=== PATIENT | female | born 1980 | race Caucasian/White ===

== ENCOUNTER → 2017-08-13 | Outpatient (CLI) | payer OTHER, MEDICARE, MEDICAID ==
[~2017-08-13] MED LIST: ACETAMINOPHEN325 M1 PO; ADVAIR HFA 1112 UNIT INH; ALLERGY10 MG PO; ANUSOL-HC25 MG RECTAL; APAP500 PO; AUGMENTIN 875-1 EACH PO; AZTREONAM1 GM IV; BACTRIM DS TAB1 EACH PO; BENTYL10 MG PO; BONIVA150 MG PO; BUTALB-ACETAMI1 EACH PO; CARDIZEM CD 18180 M3 PO; CARDIZEM CD240 MG PO; CATHFLO ACT2 MG/VIA1 IV; CHOLESTYRAMINE P4 GM PO; CIPRO500 MG PO; COMBIVENT INH; COMBIVENT RESPIM4 GM INH; D-20002000 UNIT PO; DILTIAZEM 24HR240 M1 PO; DILTIAZEM 24HR240 MG PO; DIPHENHIST50 MG PO; DUONEB 2.5-0.5 M3 ML INH; FIORICET 50-321 EACH PO; FISH OIL + D31 EACH; FISH OIL 1,001000 M2 PO; FLAGYL500 MG PO; FOSAMAX 35 MG35 MG PO; FOSAMAX 70 MG T70 M1 PO; FOSAMAX 70 MG T70 MG PO; IBUPROFEN 200200 M1 PO; IBUPROFEN 600600 M1 PO; INVANZ 1GM/NS 101 GM IV; INVANZ IV; IRON325 PO; KEPPRA 500 MG500 M1 PO; KEPPRA750 MG PO; MAXIPIME 1 GM/D51 G1 IVPB; MEROPENEM 1 GM V1 GM IVPB; MULTIVITAMINS PO; NORCO 5-325 TA1 EACH PO; PERCOCET 5-3251 EACH PO; PROTONIX40 M2 PO; SINGULAIR 10 MG10 M1 PO; SYNTHROID50 MCG PO; TAMSULOSIN HCL0.4 MG PO; URSODIOL300 MG PO; VANCO1GM IV; VANCOMYCIN HCL 11 G2 IV; VANCOMYCIN100 MG/ML PO; VENTOLIN17 GM INH; XANAX 0.5 MG0.5 MG PO; ZOFRAN 4 MG ORAL4 MG PO; ZOFRAN ODT4 MG PO; ZOFRAN4 MG PO
== END ==
LOC: M.WC 02:10
DX: L89.892 Pressure ulcer of other site, stage 2 (principal); L89.320 Pressure ulcer of left buttock, unstageable; I10 Essential (primary) hypertension; Q05.7 Lumbar spina bifida without hydrocephalus; G40.301 Generalized idiopathic epilepsy and epileptic syndromes, not intractable, with status epilepticus; J45.909 Unspecified asthma, uncomplicated; F41.1 Generalized anxiety disorder; F32.9 Major depressive disorder, single episode, unspecified; Z90.710 Acquired absence of both cervix and uterus

== ENCOUNTER → 2017-09-13 | Outpatient (CLI) | payer OTHER, MEDICARE, MEDICAID | LOC: M.WC 11:00 | DX: L89.152 Pressure ulcer of sacral region, stage 2 (principal); L89.893 Pressure ulcer of other site, stage 3; F41.1 Generalized anxiety disorder; G40.301 Generalized idiopathic epilepsy and epileptic syndromes, not intractable, with status epilepticus; Q05.7 Lumbar spina bifida without hydrocephalus; J45.909 Unspecified asthma, uncomplicated; F32.9 Major depressive disorder, single episode, unspecified; I10 Essential (primary) hypertension ==

== ENCOUNTER → 2017-09-20 | Outpatient (CLI) | payer OTHER, MEDICARE, MEDICAID | LOC: M.WC 02:42 | DX: L89.152 Pressure ulcer of sacral region, stage 2 (principal); L89.320 Pressure ulcer of left buttock, unstageable; I10 Essential (primary) hypertension; L03.116 Cellulitis of left lower limb; Q05.9 Spina bifida, unspecified; F41.1 Generalized anxiety disorder; F32.9 Major depressive disorder, single episode, unspecified; J45.909 Unspecified asthma, uncomplicated; Z90.710 Acquired absence of both cervix and uterus ==

== ENCOUNTER → 2017-09-27 | Outpatient (CLI) | payer OTHER, MEDICARE, MEDICAID | LOC: M.WC 02:33 | DX: L89.893 Pressure ulcer of other site, stage 3 (principal); L89.223 Pressure ulcer of left hip, stage 3; Q05.9 Spina bifida, unspecified; I10 Essential (primary) hypertension; L03.116 Cellulitis of left lower limb; G40.301 Generalized idiopathic epilepsy and epileptic syndromes, not intractable, with status epilepticus; J45.909 Unspecified asthma, uncomplicated; F32.9 Major depressive disorder, single episode, unspecified; F41.1 Generalized anxiety disorder; Z90.710 Acquired absence of both cervix and uterus; Z89.422 Acquired absence of other left toe(s) ==

== ENCOUNTER → 2017-10-04 | Outpatient (CLI) | payer OTHER, MEDICARE, MEDICAID | LOC: M.WC 02:27 | DX: L89.893 Pressure ulcer of other site, stage 3 (principal); I10 Essential (primary) hypertension; Q05.7 Lumbar spina bifida without hydrocephalus; G40.301 Generalized idiopathic epilepsy and epileptic syndromes, not intractable, with status epilepticus; J45.909 Unspecified asthma, uncomplicated; F32.9 Major depressive disorder, single episode, unspecified; F41.1 Generalized anxiety disorder; Z90.710 Acquired absence of both cervix and uterus ==

== ENCOUNTER → 2017-10-18 | Outpatient (CLI) | payer OTHER, MEDICARE, MEDICAID | LOC: M.WC 03:48 | DX: L89.893 Pressure ulcer of other site, stage 3 (principal); I10 Essential (primary) hypertension; Q05.7 Lumbar spina bifida without hydrocephalus; J45.909 Unspecified asthma, uncomplicated; F32.9 Major depressive disorder, single episode, unspecified; F41.1 Generalized anxiety disorder; Z90.710 Acquired absence of both cervix and uterus; Z89.422 Acquired absence of other left toe(s) ==

== ENCOUNTER → 2017-11-01 | Outpatient (CLI) | payer OTHER, MEDICARE, MEDICAID | LOC: M.WC 04:38 | DX: L89.893 Pressure ulcer of other site, stage 3 (principal); Q05.7 Lumbar spina bifida without hydrocephalus; G40.301 Generalized idiopathic epilepsy and epileptic syndromes, not intractable, with status epilepticus; F41.1 Generalized anxiety disorder; J45.909 Unspecified asthma, uncomplicated; F32.9 Major depressive disorder, single episode, unspecified; I10 Essential (primary) hypertension; Z90.710 Acquired absence of both cervix and uterus ==

== ENCOUNTER → 2017-11-15 | Outpatient (CLI) | payer OTHER, MEDICARE, MEDICAID | LOC: M.WC 01:52 | DX: L89.893 Pressure ulcer of other site, stage 3 (principal); L97.121 Non-pressure chronic ulcer of left thigh limited to breakdown of skin; I10 Essential (primary) hypertension; G40.909 Epilepsy, unspecified, not intractable, without status epilepticus; Q05.9 Spina bifida, unspecified; J45.909 Unspecified asthma, uncomplicated; F41.9 Anxiety disorder, unspecified; F32.9 Major depressive disorder, single episode, unspecified; Z90.710 Acquired absence of both cervix and uterus; Z89.422 Acquired absence of other left toe(s) ==

== ENCOUNTER → 2017-12-20 | Outpatient (CLI) | payer OTHER, MEDICARE, MEDICAID ==
--- NOTE | 2017-12-20 14:47 | NUR ---
ARRIVED PER WHEELCHAIR. STAYED IN [facility]. PORT A CATH ACCCESSED WITH EASE. GOOD BRISK BLOOD RETURN NOTED AND FLUSHED WITH EASE. LINE FLUSHED AND DEACCESSED. TOLERATED WELL. DENIES NEEDS AT DISCHARGE.
== END ==
LOC: M.INFUS 02:28
DX: Z45.2 Encounter for adjustment and management of vascular access device (principal)

== ENCOUNTER → 2018-01-17 | Outpatient (CLI) | payer OTHER, MEDICARE, MEDICAID ==
--- NOTE | 2018-01-17 11:18 | NUR ---
ARRIVED PER WHEELCHAIR. STAYED IN WHEELCHAIR. GRANDMA WITH PT. EMELA CREAM UNDER TEGADERM TO LEFT CHEST OVER PORT REMOVED. PORT ACCESSED PER PROTOCOL. GOOD BRISKB LOOD RETURN NOTED AND FLUSHED WITH EASE. PORT FLUSHED AND THEN DEACCESSED. DENEIS QUESTIONS OR NEEDS AT DISCHARGE.
== END ==
LOC: M.INFUS 08:52
DX: Z45.2 Encounter for adjustment and management of vascular access device (principal); M46.28 Osteomyelitis of vertebra, sacral and sacrococcygeal region

== ENCOUNTER → 2018-02-06 | Outpatient (CLI) | payer OTHER, MEDICARE, MEDICAID ==
[2018-02-06 15:04] LABS: ABSOLUTE EOSINOPHILS 0.1 thou/uL (0.0-0.7); ABSOLUTE LYMPHOCYTES 1.1 thou/uL (0.8-5.3); ABSOLUTE MONOCYTES 0.5 thou/uL (0.0-1.2); ABSOLUTE NEUTROPHILS 5.2 thou/uL (1.6-8.1); BASOPHILS 0.6 %; EOSINOPHILS 1.7 %; HEMATOCRIT 32.2 % (37.0-47.0); HEMOGLOBIN 10.2 gm/dL (12.0-15.0); LYMPHOCYTES 16.2 %; MCH 25.3 pg (26.0-34.0); MCHC 31.7 g/dL (28.0-37.0); MCV 79.9 fL (80.0-100.0); MONOCYTES 7.1 %; MPV 7.8 fl. (7.2-11.1); NUCLEATED RBCS 0 /100WBC; PLATELET COUNT* 373 thou/uL (150-400); POLYS 74.4 %; RBC 4.03 mil/uL (4.20-5.00); RDW-CV 18.7 % (10.5-14.5)
[2018-02-06 16:05] LABS: ESR (SEDRATE) 55 mm/hr (0-20)
== END ==
LOC: M.ULTRA 14:35
PROVIDERS: Nurse Practitioner Family
DX: L02.416 Cutaneous abscess of left lower limb (principal)

== ENCOUNTER → 2018-02-07 | Outpatient (CLI) | payer OTHER, MEDICARE, MEDICAID | LOC: M.WC 09:11 | DX: L89.153 Pressure ulcer of sacral region, stage 3 (principal); L89.223 Pressure ulcer of left hip, stage 3; L89.899 Pressure ulcer of other site, unspecified stage; L02.416 Cutaneous abscess of left lower limb; G40.301 Generalized idiopathic epilepsy and epileptic syndromes, not intractable, with status epilepticus; I10 Essential (primary) hypertension; J45.909 Unspecified asthma, uncomplicated; Q05.7 Lumbar spina bifida without hydrocephalus; F32.9 Major depressive disorder, single episode, unspecified; F41.1 Generalized anxiety disorder; Z93.3 Colostomy status; Z89.422 Acquired absence of other left toe(s); Z90.710 Acquired absence of both cervix and uterus ==

== ENCOUNTER → 2018-02-14 | Outpatient (CLI) | payer OTHER, MEDICARE, MEDICAID ==
--- NOTE | 2018-02-14 12:20 | NUR ---
ARRIVED PER WHEELCAHIR. STAYED IN WHEELCHAIR. EMELA CREAM TO LEFT CHEST PER PT PRIOR TO ARRIVAL. CREAM REMOVED WITH 4X4. PORT ACCESSED PER PROTOCOL. GOOD BRISK BLOOD RETURN NOTED AND FLUSHED WITH EASE. PORT FLUSHED AND DEACCESSED. BANDAID APPLIED TO INSERTION SITE. DENIES NEEDS AT DISCHARGE.
== END ==
LOC: M.WC 05:30
DX: L89.152 Pressure ulcer of sacral region, stage 2 (principal); L02.416 Cutaneous abscess of left lower limb; I10 Essential (primary) hypertension; Q05.7 Lumbar spina bifida without hydrocephalus; G40.301 Generalized idiopathic epilepsy and epileptic syndromes, not intractable, with status epilepticus; J45.909 Unspecified asthma, uncomplicated; F32.9 Major depressive disorder, single episode, unspecified; F41.1 Generalized anxiety disorder

== ENCOUNTER → 2018-02-21 | Outpatient (CLI) | payer OTHER, MEDICARE, MEDICAID | LOC: M.WC 03:49 | DX: L89.153 Pressure ulcer of sacral region, stage 3 (principal); L89.899 Pressure ulcer of other site, unspecified stage; L02.416 Cutaneous abscess of left lower limb; I10 Essential (primary) hypertension; J45.909 Unspecified asthma, uncomplicated; Q05.7 Lumbar spina bifida without hydrocephalus; G40.301 Generalized idiopathic epilepsy and epileptic syndromes, not intractable, with status epilepticus; F32.9 Major depressive disorder, single episode, unspecified; F41.1 Generalized anxiety disorder ==

== ENCOUNTER → 2018-02-28 | Outpatient (CLI) | payer OTHER, MEDICARE, MEDICAID | LOC: M.WC 00:39 | DX: L89.892 Pressure ulcer of other site, stage 2 (principal); L02.416 Cutaneous abscess of left lower limb; G40.301 Generalized idiopathic epilepsy and epileptic syndromes, not intractable, with status epilepticus; I10 Essential (primary) hypertension; J45.909 Unspecified asthma, uncomplicated; Q05.7 Lumbar spina bifida without hydrocephalus; F32.9 Major depressive disorder, single episode, unspecified; F41.1 Generalized anxiety disorder ==

== ENCOUNTER → 2018-03-07 | Outpatient (CLI) | payer OTHER, MEDICARE, MEDICAID | LOC: M.WC 04:50 | DX: L89.892 Pressure ulcer of other site, stage 2 (principal); G40.301 Generalized idiopathic epilepsy and epileptic syndromes, not intractable, with status epilepticus; I10 Essential (primary) hypertension; J45.909 Unspecified asthma, uncomplicated; Q05.7 Lumbar spina bifida without hydrocephalus; F32.9 Major depressive disorder, single episode, unspecified; F41.9 Anxiety disorder, unspecified ==

== ENCOUNTER → 2018-03-21 | Outpatient (CLI) | payer OTHER, MEDICARE, MEDICAID | LOC: M.INFUS 04:32 | DX: Z45.2 Encounter for adjustment and management of vascular access device (principal); M46.28 Osteomyelitis of vertebra, sacral and sacrococcygeal region ==

== ENCOUNTER → 2018-03-21 | Outpatient (CLI) | payer OTHER, MEDICARE, MEDICAID ==
[2018-03-21 10:15] VITALS: BP 106/63
--- NOTE | 2018-03-21 11:00 | NUR ---
PT SICHARGED HOME WITHMOTHER. NO CO OF PAIN OR NAUSEA. PT GIVEN DISCHARGE PORT OF CARE INSTRUCTIONS.
== END ==
LOC: M.WC 04:36
DX: L89.892 Pressure ulcer of other site, stage 2 (principal); L97.122 Non-pressure chronic ulcer of left thigh with fat layer exposed; G82.20 Paraplegia, unspecified; G40.301 Generalized idiopathic epilepsy and epileptic syndromes, not intractable, with status epilepticus; I10 Essential (primary) hypertension; J45.909 Unspecified asthma, uncomplicated; Q05.7 Lumbar spina bifida without hydrocephalus; F41.9 Anxiety disorder, unspecified; F32.9 Major depressive disorder, single episode, unspecified

== ENCOUNTER → 2018-04-04 | Outpatient (CLI) | payer OTHER, MEDICARE, MEDICAID ==
[2018-04-04 11:47] LABS: ABSOLUTE BASOPHILS 0.1 thou/uL (0.0-0.2); ABSOLUTE EOSINOPHILS 0.1 thou/uL (0.0-0.7); ABSOLUTE LYMPHOCYTES 1.1 thou/uL (0.8-5.3); ABSOLUTE MONOCYTES 0.5 thou/uL (0.0-1.2); ABSOLUTE NEUTROPHILS 2.7 thou/uL (1.6-8.1); BASOPHILS 1.5 %; EOSINOPHILS 3.2 %; HEMATOCRIT 30.5 % (37.0-47.0); HEMOGLOBIN 9.6 gm/dL (12.0-15.0); LYMPHOCYTES 24.7 %; MCH 25.2 pg (26.0-34.0); MCHC 31.6 g/dL (28.0-37.0); MONOCYTES 10.4 %; MPV 7.8 fl. (7.2-11.1); NUCLEATED RBCS 0 /100WBC; PLATELET COUNT* 417 thou/uL (150-400); POLYS 60.2 %; RBC 3.81 mil/uL (4.20-5.00); RDW-CV 16.6 % (10.5-14.5); WBC 4.5 thou/uL (4.0-11.0)
[2018-04-04 12:07] LABS: ANION GAP 10 mmol/L (7-16); BUN 10 mg/dL (7-18); CALCIUM 8.5 mg/dL (8.5-10.1); CHLORIDE 107 mmol/L (98-107); CO2 25 mmol/L (21-32); CREATININE 0.4 mg/dL (0.6-1.3); GLUCOSE 99 mg/dL (70-99); POTASSIUM 3.8 mmol/L (3.5-5.1); SODIUM 142 mmol/L (136-145)
[2018-04-04 12:12] LABS: ALBUMIN 3.2 g/dL (3.4-5.0); ALKALINE PHOSPHATASE 77 U/L (46-116); SGOT 15 U/L (15-37); SGPT 11 U/L (30-65); TOTAL PROTEIN 7.2 g/dL (6.4-8.2)
[2018-04-04 12:22] LABS: TOTAL BILIRUBIN < 0.1 mg/dL (<0.1-1.0)
== END ==
LOC: M.WC 04:27
PROVIDERS: Family Medicine
DX: L89.892 Pressure ulcer of other site, stage 2 (principal); L89.223 Pressure ulcer of left hip, stage 3; G40.301 Generalized idiopathic epilepsy and epileptic syndromes, not intractable, with status epilepticus; G82.20 Paraplegia, unspecified; I10 Essential (primary) hypertension; J45.909 Unspecified asthma, uncomplicated; Q05.7 Lumbar spina bifida without hydrocephalus; F32.9 Major depressive disorder, single episode, unspecified; F41.9 Anxiety disorder, unspecified

== ENCOUNTER → 2018-04-18 | Outpatient (CLI) | payer OTHER, MEDICARE, MEDICAID ==
[2018-04-18 10:08] VITALS: BP 112/64
--- NOTE | 2018-04-18 10:31 | NUR ---
ARRIVED PER WHEELCHAIR WITH MOTHER. STAYED IN WHEELCHAIR. PORT A CATH ACCESSED WITH OUT DIFFICULTY. GOOD BRISK BLOOD RETURN NOTED AND FLUSHED WITH EASE. PORT FLUSHED AND DEACCESSED. DENIES QUESTION OR NEEDS AT DISCHARGE.
== END ==
LOC: M.INFUS 04:34
DX: L89.892 Pressure ulcer of other site, stage 2 (principal); G40.909 Epilepsy, unspecified, not intractable, without status epilepticus; G82.20 Paraplegia, unspecified; G40.301 Generalized idiopathic epilepsy and epileptic syndromes, not intractable, with status epilepticus; I10 Essential (primary) hypertension; J45.909 Unspecified asthma, uncomplicated; Q05.7 Lumbar spina bifida without hydrocephalus; F41.9 Anxiety disorder, unspecified; F32.9 Major depressive disorder, single episode, unspecified

== ENCOUNTER → 2018-06-19 | Outpatient (CLI) | payer OTHER, MEDICARE, MEDICAID ==
[~2018-06-19] MED LIST changes: +DILTIAZEM 24HR240 M2 PO; +HYDROCODONE-AP1 EAC6 PO; +MONUROL3 GM PER TUBE; +PROBIOTIC1 EAC4 PO
--- NOTE | 2018-06-19 12:02 | NUR ---
PORT A CATH ACCESSED WITH OUT DIFFICULTY. GOOD BRISK BLOOD RETURN NOTED AND FLUSHED WITH EASE. PORT FLUSHED AND DEACCESSED.
== END ==
LOC: M.INFUS 05-22 10:00
DX: Z45.2 Encounter for adjustment and management of vascular access device (principal); M46.28 Osteomyelitis of vertebra, sacral and sacrococcygeal region

== ENCOUNTER → 2018-07-18 | Outpatient (CLI) | payer OTHER, MEDICARE, MEDICAID ==
--- NOTE | 2018-07-18 12:27 | NUR ---
ARRIVED PER WHEELCHAIR AND STAYED IN WHEELCHAIR WHILE HERE. PT HAD EMELA CREAM AND TEGADERM OVER PORT SITE. IT WAS REMOVED AND AREA WIPED WITH 4X4. PORT ACCESSED WITH OUT DIFFICULTY. GOOD BRISK BLOOD RETURN NOTED AND FLUSHED WITH EASE. PORT FLUSHED AND DEACCESSED. TOLERATED WELL. DENIES QUESTIONS OR NEEDS AT DISCHARGE.
== END ==
LOC: M.INFUS 08:22
DX: Z45.2 Encounter for adjustment and management of vascular access device (principal); M46.28 Osteomyelitis of vertebra, sacral and sacrococcygeal region

== ENCOUNTER → 2018-08-13 | Outpatient (CLI) | payer OTHER, MEDICARE, MEDICAID ==
[2018-08-13 11:40] VITALS: BP 112/66
--- NOTE | 2018-08-13 12:18 | NUR ---
PATIENT ARRIVED VIA WHEELCHAIR WITH NO PRIOR SCHEDULED APPOINTMENT. SCHEDULING NOTIFIED OF STANDING ORDER FOR MONTHLY CARE AND MAINTENANCE OF IMPLANTABLE PORT. LINE ACCESSED AND FLUSHED AND PACKED WITH HEPARIN WITH NO DIFFICULTTY. LINE PATENT, PATIENT TOLERATED PROCEDURE WELL. ARRIVED AND DEPARTRED WITH MOTHER AT SIDE.
== END ==
LOC: M.INFUS 11:25
DX: Z45.2 Encounter for adjustment and management of vascular access device (principal); M46.28 Osteomyelitis of vertebra, sacral and sacrococcygeal region; N39.0 Urinary tract infection, site not specified

== ENCOUNTER → 2018-09-05 | Outpatient (CLI) | payer OTHER, MEDICARE, MEDICAID | LOC: M.WC 09:53 | DX: L89.892 Pressure ulcer of other site, stage 2 (principal); L89.222 Pressure ulcer of left hip, stage 2; G40.909 Epilepsy, unspecified, not intractable, without status epilepticus; I10 Essential (primary) hypertension; Q05.9 Spina bifida, unspecified; J45.909 Unspecified asthma, uncomplicated; K21.9 Gastro-esophageal reflux disease without esophagitis; M62.3 Immobility syndrome (paraplegic); F32.9 Major depressive disorder, single episode, unspecified; F41.9 Anxiety disorder, unspecified; Z90.710 Acquired absence of both cervix and uterus; Z93.3 Colostomy status ==

== ENCOUNTER → 2018-09-12 | Outpatient (CLI) | payer OTHER, MEDICARE, MEDICAID | LOC: M.MRI 16:30 | DX: L89.222 Pressure ulcer of left hip, stage 2 (principal) ==

== ENCOUNTER → 2018-09-19 | Outpatient (CLI) | payer OTHER, MEDICARE, MEDICAID ==
--- NOTE | 2018-09-19 12:46 | NUR ---
MONTHLY PORT A CATH FLUSH COMPELTED. TOLERATED WELL.
== END ==
LOC: M.WC 05:04 → M.INFUS 05:04 → M.WC 10:30 → M.INFUS 11:00
DX: L89.222 Pressure ulcer of left hip, stage 2 (principal); L89.892 Pressure ulcer of other site, stage 2; G82.20 Paraplegia, unspecified; G40.909 Epilepsy, unspecified, not intractable, without status epilepticus; I10 Essential (primary) hypertension; J45.909 Unspecified asthma, uncomplicated; K21.9 Gastro-esophageal reflux disease without esophagitis; M62.3 Immobility syndrome (paraplegic); F32.9 Major depressive disorder, single episode, unspecified; F41.9 Anxiety disorder, unspecified

== ENCOUNTER → 2018-10-02 | Outpatient (CLI) | payer OTHER, MEDICARE, MEDICAID | LOC: M.WC 05:01 | DX: L89.892 Pressure ulcer of other site, stage 2 (principal); G40.909 Epilepsy, unspecified, not intractable, without status epilepticus; I10 Essential (primary) hypertension; J45.909 Unspecified asthma, uncomplicated; K21.9 Gastro-esophageal reflux disease without esophagitis; M62.3 Immobility syndrome (paraplegic); F41.9 Anxiety disorder, unspecified; F32.9 Major depressive disorder, single episode, unspecified ==

== ENCOUNTER → 2018-10-17 | Outpatient (CLI) | payer OTHER, MEDICARE, MEDICAID ==
--- NOTE | 2018-10-17 11:32 | NUR ---
ARRIVED PER WHEELCHAIR. PORT A CATH TO LEFT CHEST INTACT WTIH NO SIGN OF INFECTION. PORT ACCESSED WITH OUT DIFFICULTY. GOOD BRISK BLOOD RETURN NOTED AND FLUSHED WITH EASE. PORT FLUSHED AND DEACCESSED. TOLERATED WELL. DENIES NEEDS AT DISCHARGE.
== END ==
LOC: M.INFUS 04:37
DX: Z45.2 Encounter for adjustment and management of vascular access device (principal); N39.0 Urinary tract infection, site not specified

== ENCOUNTER → 2018-10-17 | Outpatient (CLI) | payer OTHER, MEDICARE, MEDICAID | LOC: M.WC 10-16 11:00 | DX: L89.222 Pressure ulcer of left hip, stage 2 (principal); I10 Essential (primary) hypertension; G82.20 Paraplegia, unspecified; M62.3 Immobility syndrome (paraplegic); G40.909 Epilepsy, unspecified, not intractable, without status epilepticus; Q05.9 Spina bifida, unspecified; J45.909 Unspecified asthma, uncomplicated; F41.9 Anxiety disorder, unspecified; F32.9 Major depressive disorder, single episode, unspecified ==

== ENCOUNTER → 2018-11-14 | Outpatient (CLI) | payer OTHER, MEDICARE, MEDICAID | LOC: M.INFUS 05:19 | DX: Z45.2 Encounter for adjustment and management of vascular access device (principal); N39.0 Urinary tract infection, site not specified ==

== ENCOUNTER → 2018-12-23 | Outpatient (CLI) | payer OTHER, MEDICARE, MEDICAID ==
--- NOTE | 2018-12-23 11:58 | NUR ---
ARRIVED PER WHEELCHAIR AND REMAINED IN WHEELCHAIR. PT HAD TEGADERM WITH EMELA CREAM. TEGADERM REMOVED AND AREA CLEANED. PORT A CATH ACCESSED WTIH OUT DIFFICULTY PER PROTOCOL. GOOD BRISK BLOOD RETURN NOTED AND FLUSHED WITH EASE. PORT FLUSHED AND DEACCESSED. TOLERATED WELL. DENIES QUESTIONS OR NEEDS AT DISCHARGE.
== END ==
LOC: M.INFUS 05:00
DX: Z45.2 Encounter for adjustment and management of vascular access device (principal); N39.0 Urinary tract infection, site not specified

== ENCOUNTER → 2019-01-23 | Outpatient (CLI) | payer OTHER, MEDICARE, MEDICAID ==
[2019-01-23 11:26] VITALS: BP 104/74
== END ==
LOC: M.INFUS 05:13
DX: Z45.2 Encounter for adjustment and management of vascular access device (principal); N39.0 Urinary tract infection, site not specified

== ENCOUNTER → 2019-03-06 | Outpatient (CLI) | payer OTHER, MEDICARE, MEDICAID | LOC: M.INFUS 05:02 | DX: Z45.2 Encounter for adjustment and management of vascular access device (principal); N39.0 Urinary tract infection, site not specified ==

== ENCOUNTER → 2019-05-15 | Outpatient (CLI) | payer OTHER, MEDICARE, MEDICAID ==
--- NOTE | 2019-05-15 13:08 | NUR ---
ARRIVED PER WHEELCHAIR. STAYED IN CHAIR. PORT A CATH ACCESSED WITH EASE. PORT FLUSHED AND DEACCESSED. TOLERATED WELL. DENIES QUESTION OR NEED AT DISCHARGE.
== END ==
LOC: M.INFUS 09:00
DX: Z45.2 Encounter for adjustment and management of vascular access device (principal); N39.0 Urinary tract infection, site not specified

== ENCOUNTER → 2019-06-19 | Outpatient (CLI) | payer OTHER, MEDICARE, MEDICAID | LOC: M.INFUS 04:01 | DX: Z45.2 Encounter for adjustment and management of vascular access device (principal) ==

== ENCOUNTER → 2019-08-20 | Outpatient (CLI) | payer OTHER, MEDICARE, MEDICAID | LOC: M.WC 04:13 | DX: L60.3 Nail dystrophy (principal); I89.0 Lymphedema, not elsewhere classified; I10 Essential (primary) hypertension; G82.20 Paraplegia, unspecified; G40.909 Epilepsy, unspecified, not intractable, without status epilepticus; J45.909 Unspecified asthma, uncomplicated; Q05.9 Spina bifida, unspecified; K21.9 Gastro-esophageal reflux disease without esophagitis; F32.9 Major depressive disorder, single episode, unspecified; F41.9 Anxiety disorder, unspecified ==

== ENCOUNTER → 2019-10-20 | Outpatient (CLI) | payer OTHER, MEDICARE, MEDICAID | LOC: M.INFUS 05:43 | PROVIDERS: ATTEND Specialist | DX: Z45.2 Encounter for adjustment and management of vascular access device (principal); N39.0 Urinary tract infection, site not specified ==

== ENCOUNTER → 2019-11-26 | Outpatient (CLI) | payer OTHER, MEDICARE, MEDICAID ==
--- NOTE | 2019-11-26 11:21 | NUR ---
PORT ACCESSED WITH OUT DIFFICULTY. GOOD BRISK BLOOD RETURN NOTED AND EASY FLUSH. PORT FLUSHED AND DEACCESSED. TOLERATED WELL.
== END ==
LOC: M.INFUS 03:57
PROVIDERS: ATTEND Specialist
DX: Z45.2 Encounter for adjustment and management of vascular access device (principal); N39.0 Urinary tract infection, site not specified